=== PATIENT | female | born 1960 | race Caucasian/White ===

== ENCOUNTER → 2018-01-06 10:24 | Outpatient (CLI) | payer MEDICARE, SELFPAY ==
--- NOTE | 2018-01-06 11:06 | MM_ITS ---
MM Dig screening mamm BI w/CAD CAD Screening ORDERING PHYSICIAN : Kostas Magana PATIENT AGE: 57 years GENDER: Female HISTORY. No hormones. No new complaints. Noncontributory family history. Total Hysterectomy. COMPARISON: No previous studies for comparison (: Prior [facility] studies from 2008 have been purged as per hospital protocol). TECHNIQUE: Standard CC and MLO images were obtained. R2 CAD reviewed. FINDINGS: Minimal fibroglandular elements in both breasts.. low-density breast bilaterally with moderate fatty replacement. Minor asymmetry with minimal residual fibroglandular elements most evident at superior left breast. No dominant mass nor suspicious calcifications either breast. .. No areas of significant concern. Bilateral follow-up in one year recommended IMPRESSION: . . No areas of significant concern. Bilateral follow-up one year recommended and adequate. Minimal fibroglandular elements bilaterally with lower density breast. Mild asymmetry BI-RADS Category: 1 Negative RECOMMENDED FOLLOW-UP: 1YR - 1 YEAR FOLLOW-UP (A letter has been sent to the patient regarding results of the study.)
[2018-01-06 11:20] LABS: Basophils # 0.1 K/mm3 (0-0.2); Basophils % 0.9 % (0.1-2.0); Eosinophils # 0.4 K/mm3 (0.0-0.4); Eosinophils % 3.4 % (0.1-12.0); Hematocrit 45.2 % (37.0-47.0); Hemoglobin 14.8 g/dL (12.2-16.2); Lymphocytes # 3.7 K/mm3 (0.7-4.5); Lymphocytes % 32.3 K/mm3 (10-50); Mean Corpuscular HGB Conc 32.8 g/dL (31.8-35.4); Mean Corpuscular Hemoglobin 28.6 pg (27.0-31.2); Mean Platelet Volume 9.4 fl (7.4-10.4); Monocytes # 0.4 K/mm3 (0.1-1.0); Monocytes % 3.4 % (1.7-9.3); Neutrophils % 60.1 % (37.0-80.0); Platelet Count 301 K/mm3 (142-424); Red Blood Count 5.19 M/mm3 (4.20-5.40); Red Cell Distribution Width 14.6 % (11.5-17.5); White Blood Count 11.6 K/mm3 (4.8-10.8)
[2018-01-06 11:26] LABS: Hemoglobin A1C 5.9 % (0.0-7.0)
[2018-01-06 11:53] LABS: Alanine Aminotransferase 38 U/L (12-78); Albumin Level 3.6 gm/dL (3.4-5.0); Albumin/Globulin Ratio 1.1 (1.1-1.8); Alkaline Phosphatase 149 U/L (46-116); Anion Gap 11.1 mEq/L (5-15); Aspartate Amino Transferase 22 U/L (15-37); Bilirubin,Total 0.3 mg/dL (0.2-1.0); Blood Urea Nitrogen 10 mg/dL (7-18); Calcium 9.2 mg/dL (8.5-10.1); Carbon Dioxide 27 mmol/L (21.0-32.0); Chloride 109 mmol/L (98-107); Chol/HDL Ratio 3.9 (1-3.5); Cholesterol 254 mg/dL (140-200); Creatinine,Serum 0.81 mg/dL (0.55-1.02); Estimated Glomerular Filt Rate 72 ml/min (>60); GFR (African American) 88 ML/MIN (>60); Globulin 3.4 gm/dl (1.3-3.2); Glucose 101 mg/dL (74-106); HDL Cholesterol 65 mg/dL (29-89); LDL Cholesterol 146 mg/dL (0-130); Potassium 5.1 mmoL/L (3.5-5.1); Sodium 142 mmol/L (136-145); Thyroid Stimulating Hormone 1.81 uIU/ml (0.358-3.740); Triglycerides 215 mg/dL (30-200); VLDL Cholesterol 43 mg/dL (0-40)
[2018-01-07 19:04] LABS: Vitamin D 25 Hydroxy 8.8 ng/mL (30.0-100.0)
[2018-01-07 19:06] LABS: Vitamin B12 239 pg/mL (232-1245)
== END ==
PROVIDERS: Family Medicine; PCP Internal Medicine; Visit Provider Internal Medicine
DX: E11.9 Type 2 diabetes mellitus without complications (principal); I10 Essential (primary) hypertension; Z12.31 Encounter for screening mammogram for malignant neoplasm of breast; E78.5 Hyperlipidemia, unspecified; R94.5 Abnormal results of liver function studies; G43.011 Migraine without aura, intractable, with status migrainosus; Z98.84 Bariatric surgery status
CPT/HCPCS: 36415; 77067; 80053; 80061; 82607; 82652; 83036; 84443; 85025

== ENCOUNTER → 2019-04-04 15:36 | Outpatient (CLI) | payer MEDICARE, SELFPAY ==
--- NOTE | 2019-04-04 15:40 | XR_ITS ---
XR chest 2V HISTORY: ITS.REASON: COUGH,SPUTUM,FEVER ORDERING PHYSICIAN: Kostas Magana PATIENT AGE: 58 years COMPARISON: 05/20/2015 FINDINGS: The cardiomediastinal silhouette and pulmonary vascularity are within normal limits. The lungs are clear without infiltrates, suspicious nodules, or pleural effusions. No acute bony abnormalities. IMPRESSION: Negative chest, no acute finding
== END ==
PROVIDERS: PCP Internal Medicine; Visit Provider Internal Medicine
DX: R05 Cough (principal); R50.9 Fever, unspecified; R09.89 Other specified symptoms and signs involving the circulatory and respiratory systems
CPT/HCPCS: 71046

== ENCOUNTER → 2021-02-18 14:50 | Outpatient (CLI) | payer MEDICARE, SELFPAY ==
--- NOTE | 2021-02-18 14:59 | XR_ITS ---
PROCEDURE: XR CHEST 2V CLINICAL HISTORY: PERSISTENT COUGH,FEVER COMPARISON: CR CXR CHEST(2 VIEWS-NOT PORTABLE) from 05/20/2015 FINDINGS: The cardiomediastinal silhouette and pulmonary vascularity are within normal limits. The lungs are clear without infiltrates, suspicious nodules, or pleural effusions. No acute bony abnormalities. IMPRESSION: No acute findings. Dictated by: Alberto Mejia MD 02/18/2021 15:26 Alberto Mejia MD in [place] 02/18/2021 15:26
== END ==
PROVIDERS: PCP Internal Medicine; Visit Provider Internal Medicine
DX: R05 Cough (principal); R50.9 Fever, unspecified
CPT/HCPCS: 71046

== ENCOUNTER → 2022-03-16 07:02 | Outpatient (CLI) | payer MEDICARE, SELFPAY ==
[2022-03-16 07:29] LABS: Basophils # 0.1 K/mm3 (0-0.2); Basophils % 0.9 % (0.1-2.0); Eosinophils # 0.3 K/mm3 (0.0-0.4); Eosinophils % 2.5 % (0.1-12.0); Hematocrit 41.8 % (37.0-47.0); Hemoglobin 13.6 g/dL (12.2-16.2); Lymphocytes # 2.9 K/mm3 (0.7-4.5); Lymphocytes % 21.7 % (10-50); Mean Corpuscular HGB Conc 32.5 g/dL (31.8-35.4); Mean Corpuscular Volume 83.2 fl (81-99); Mean Platelet Volume 8.5 fl (7.4-10.4); Monocytes # 0.5 K/mm3 (0.1-1.0); Monocytes % 3.7 % (1.7-9.3); Neutrophils # 9.5 K/mm3 (1.8-7.8); Neutrophils % 71.2 % (37.0-80.0); Platelet Count 333 K/mm3 (142-424); Red Blood Count 5.03 M/mm3 (4.20-5.40); Red Cell Distribution Width 15.9 % (11.5-17.5); White Blood Count 13.4 K/mm3 (4.8-10.8)
[2022-03-16 07:44] LABS: Chloride 106 mmol/L (98-107); Potassium 4.6 mmoL/L (3.5-5.1)
[2022-03-16 07:45] LABS: Blood Urea Nitrogen 10 mg/dl (7-17); Estimated Glomerular Filt Rate 72 ml/min (>60); GFR (African American) 88 ML/MIN (>60)
[2022-03-16 07:46] LABS: Alanine Aminotransferase 16 U/L (12-78); Albumin Level 3.6 g/dl (3.5-5.0); Albumin/Globulin Ratio 1.3 (1.1-1.8); Alkaline Phosphatase 136 U/L (38-126); Aspartate Amino Transferase 26 U/L (14-36); Bilirubin,Direct 0.1 mg/dl (0.0-0.4); Bilirubin,Total 0.3 mg/dl (0.2-1.3); Calcium 9.3 mg/dl (8.4-10.2); Carbon Dioxide 30 mmol/L (22.0-30.0); Cholesterol 225 mg/dl (140-200); Globulin 2.8 g/dL (1.3-3.2); Glucose 122 mg/dl (74-100); Magnesium 1.9 mg/dl (1.6-2.3); Total Protein,Serum 6.4 g/dl (6.3-8.2); Triglycerides 86 mg/dl (30-150); VLDL Cholesterol 17 mg/dL (0-40)
[2022-03-16 07:47] LABS: Chol/HDL Ratio 3.3 (1-3.5); HDL Cholesterol 68 mg/dl (40-60)
[2022-03-16 08:02] LABS: 25-OH Vitamin D, Total 34.8 ng/mL (30-100)
[2022-03-16 08:06] LABS: Hemoglobin A1C 5.9 % (4.0-6.0)
[2022-03-16 08:17] LABS: Thyroid Stimulating Hormone 2.26 uIU/mL (0.465-4.68)
[2022-03-16 08:56] LABS: Erythrocyte Sedimentation Rate 12 mm/hr (0-30)
[2022-03-16 09:01] LABS: Vitamin B12 395 pg/mL (239-931)
[2022-03-16 13:48] LABS: Anion Gap 5.6 mEq/L (5-15); Sodium 137 mmol/L (136-145)
[2022-03-17 16:13] LABS: Albumin 3.2 g/dL (2.9-4.4); Alpha-1-Globulin 0.3 g/dL (0.0-0.4); Gamma Globulin 0.9 g/dL (0.4-1.8); Protein, Total 6.6 g/dL (6.0-8.5)
[2022-03-17 19:17] LABS: Antinuclear Antibodies, IFA Negative (.)
== END ==
PROVIDERS: PCP Internal Medicine; Visit Provider Internal Medicine
DX: E11.42 Type 2 diabetes mellitus with diabetic polyneuropathy (principal); E78.5 Hyperlipidemia, unspecified; G43.919 Migraine, unspecified, intractable, without status migrainosus; R94.5 Abnormal results of liver function studies; R00.2 Palpitations; Z98.84 Bariatric surgery status
CPT/HCPCS: 36415; 80053; 80061; 82248; 82306; 82607; 82746; 83036; 83735; 84155; 84165; 84443; 85025; 85651; 86038; 93225

== ENCOUNTER → 2022-03-19 10:53 | Outpatient (CLI) | payer MEDICARE, SELFPAY ==
--- NOTE | 2022-03-19 10:55 | MM_ITS ---
PROCEDURE INFORMATION: Exam: MG Bilateral Screening 3D Mammography Exam date and time: 03/19/2022 11:15 AM Age: 61 years old Clinical indication: Screening examination. No family history of breast cancer. TECHNIQUE: Imaging protocol: Bilateral Screening tomosynthesis and 2D mammography including computer-aided detection (CAD) when performed. COMPARISON: MG [facility] MM Dig screening mamm BI w/CAD 01/06/2018 11:30 AM FINDINGS: MAMMOGRAPHY: Breast composition: There are scattered areas of fibroglandular density. Mass: None. Architectural distortion: None. Calcifications: No suspicious calcifications. Asymmetric density: No developing asymmetry. Skin thickening: None. Axillary adenopathy: None. IMPRESSION: No mammographic evidence of malignancy. Annual screening is recommended unless otherwise clinically indicated. ASSESSMENT: BI-RADS Category 1: Negative
--- NOTE | 2022-03-19 11:37 | CA_ITS ---
APPROVED REPORT EXAM: Comprehensive 2D, Doppler, and color-flow Echocardiogram Carrot Buncher: Nereyda Aguillon CRT Ht: 5 ft 3 in Wt: 135lbs BSA: 1.64 BP: 110/60 mmHg Indications: Palpitations 2D Dimensions LVOT 1.70 cm (M/F) 1.5-2.5 M-Mode Dimensions RVDd 2.31 cm (0.9-2.6) LA Diam 3.82 cm (1.9-4.0) LVDd 4.47 cm (3.5-5.7) Ao Diam 3.60 cm (2.0-3.7) LVDs 2.25 cm (3.5-5.7) IVSd 1.06 cm (0.6-1.1) PWd 0.72 cm (0.6-1.1) EF (Teich) 81.20% FS 49.70% EDV (Teich) 91.00 mL TAPSE 2.18 (<1.7) ESV (Teich) 17.10 mL LV Diastology E Decel Time 150.00 (160-240 msec) E/A Ratio 0.37 MED E' 4.80 (< 7 cm/sec) MED A' 11.00 cm/s E'/MED E' Ratio 9.98 (>14) LAT E' 5.40 (<10 cm/sec) LAT A' 15.50 cm/s E/LAT E' Ratio 8.87 (>14) Aortic Valve LVOT Max 158.00 (70-110 cm/s) LVOT VTI 33.20 cm AoV Peak Renan. 174.00 (50-130 cm/s) AI PHT 447.00 ms AO Peak GR. 12.20 mmHg AO Mean GR. 6.50 (<5 mmHg) AO VTI 30.92 (18-25 cm) RISHI (VTI) 2.44 (2.5-4.5 cm2) Mitral Valve MV E Max Renan. 48.00 (40-130 cm/s) MV A Velocity 130.00 (40-130 cm/s) E/A Ratio 0.37 MV Decel. Time 150.00 (160-240 ms) MV PHT 44.00 ms Pulmonary Valve PV Peak Velocity 107.00 (50-150 cm/s) Tricuspid Valve TR P. Velocity 212.00 cm/s RAP Estimate 10.00 mmHg RVSP 27.90 mmHg Left Ventricle Left atrium is mildly enlarged, left ventricle normal size mild concentric left ventricular hypertrophy, estimated ejection fraction 55% with no regional wall motion abnormality, septum is sigmoid configuration. Grade 1 diastolic dysfunction seen without tissue Doppler evidence of raise left atrial pressure. Right Ventricle Right atrium and right ventricle are normal size and contractility. Aortic Valve Aortic valve is thickened and calcified with mild aortic insufficiency. Mitral Valve Mitral valve grossly normal, there is trace mitral regurgitation. Tricuspid Valve Tricuspid grossly normal, there is trace tricuspid regurgitation, tricuspid regurgitation jet velocity is inadequate for calculation of the right ventricular systolic pressure. Pulmonic Valve Pulmonic valve is poorly visualized. Great Vessels Aortic root is normal size. Inferior vena cava is normal 7 normal inspiratory collapse. Pericardium No significant pericardial effusion noted. Conclusion 1. Mildly enlarged left atrium, normal left ventricular size mild concentric left ventricular hypertrophy, estimated ejection fraction 55% with no regional wall motion abnormality, grade 1 diastolic dysfunction seen without tissue Doppler evidence of raise left atrial pressure. 2. Mild aortic, trace mitral and tricuspid regurgitation. 3. No significant pericardial effusion. 4. Inferior vena cava normal size with normal inspiratory collapse. Electronically signed by : Uri Martinez MD 03/19/2022 14:56:07
== END ==
PROVIDERS: PCP Internal Medicine; Visit Provider Internal Medicine
DX: Z12.31 Encounter for screening mammogram for malignant neoplasm of breast (principal); R00.2 Palpitations
CPT/HCPCS: 77063; 77067; 93306

== ENCOUNTER → 2023-08-24 13:31 | Outpatient (CLI) | payer MEDICARE, SELFPAY ==
[2023-08-24 13:53] LABS: Basophils # 0.1 K/mm3 (0-0.2); Basophils % 0.6 % (0.1-2.0); Eosinophils # 0.3 K/mm3 (0.0-0.4); Eosinophils % 2.4 % (0.1-12.0); Hematocrit 42.9 % (37.0-47.0); Hemoglobin 13.7 g/dL (12.2-16.2); Lymphocytes # 3.4 K/mm3 (0.7-4.5); Lymphocytes % 28.3 % (10-50); Mean Corpuscular HGB Conc 31.8 g/dL (31.8-35.4); Mean Corpuscular Volume 87.9 fl (81-99); Monocytes # 0.7 K/mm3 (0.1-1.0); Monocytes % 5.4 % (1.7-9.3); Neutrophils # 7.7 K/mm3 (1.8-7.8); Neutrophils % 63.3 % (37.0-80.0); Platelet Count 312 K/mm3 (142-424); Red Blood Count 4.88 M/mm3 (4.20-5.40); Red Cell Distribution Width 14.6 % (11.5-17.5); White Blood Count 12.1 K/mm3 (4.8-10.8)
[2023-08-24 14:07] LABS: Creatinine,Urine Random 41 mg/dL (Not Estab.)
[2023-08-24 14:15] LABS: Microalbumin < 6.000 mg/L (0-16.7)
[2023-08-24 14:29] LABS: Hemoglobin A1C 5.6 % (4.0-6.0)
[2023-08-24 14:39] LABS: Alanine Aminotransferase 41 U/L (12-78); Albumin Level 4.1 g/dl (3.5-5.0); Albumin/Globulin Ratio 1.6 (1.1-1.8); Alkaline Phosphatase 138 U/L (38-126); Anion Gap 9.3 mEq/L (5-15); Aspartate Amino Transferase 41 U/L (14-36); Bilirubin,Total 0.5 mg/dl (0.2-1.3); Blood Urea Nitrogen 13 mg/dl (7-17); Calcium 8.8 mg/dl (8.4-10.2); Carbon Dioxide 28 mmol/L (22.0-30.0); Chloride 102 mmol/L (98-107); Chol/HDL Ratio 3.6 (1-3.5); Cholesterol 249 mg/dl (140-200); Estimated Glomerular Filt Rate 84 ml/min (>60); GFR (African American) 102 ML/MIN (>60); Globulin 2.6 g/dL (1.3-3.2); Glucose 86 mg/dl (74-100); HDL Cholesterol 70 mg/dl (40-60); Potassium 4.3 mmoL/L (3.5-5.1); Sodium 135 mmol/L (136-145); Total Protein,Serum 6.7 g/dl (6.3-8.2); Triglycerides 96 mg/dl (30-150); VLDL Cholesterol 19 mg/dL (0-40)
[2023-08-24 15:00] LABS: 25-OH Vitamin D, Total 39.1 ng/mL (30-100)
[2023-08-24 15:01] LABS: Direct LDL Cholesterol 143.21 mg/dL (100-129)
[2023-08-24 15:47] LABS: Vitamin B12 213 pg/mL (239-931)
== END ==
PROVIDERS: PCP Internal Medicine; Visit Provider Internal Medicine
DX: E11.42 Type 2 diabetes mellitus with diabetic polyneuropathy; E78.5 Hyperlipidemia, unspecified; I10 Essential (primary) hypertension; F33.1 Major depressive disorder, recurrent, moderate; G43.819 Other migraine, intractable, without status migrainosus; G25.81 Restless legs syndrome; Z98.84 Bariatric surgery status
CPT/HCPCS: 80053; 80061; 82043; 82306; 82570; 82607; 82746; 83036; 85025